=== PATIENT | male | born 1980 | race African-American/Black ===

== ENCOUNTER 2017-02-08 21:20 | Inpatient (IN) | payer OTHER ==
[~2017-02-08] VITALS: Ht 188 cm; Wt 101.2 kg
[2017-02-09] MEDS ORDERED: SODIUM CHLORIDE 0.9% 1,000 ML IV ONE (02:59)
[2017-02-09] MEDS ORDERED: FAMOTIDINE 20MG/2ML VIAL IV STA (02:59)
[2017-02-09] MEDS ORDERED: ONDANSETRON HCL 4MG/2ML VIAL IV STA (02:59)
[2017-02-09 03:14] LABS: INR 1.1; PARTIAL THROMBOPLASTIN TIME 28.9 sec (24.0-34.0); PROTHROMBIN TIME 11.8 sec
[2017-02-09 03:19] LABS: CARBON DIOXIDE 29 mEq/L (21-32); CHLORIDE 106 mEq/L (98-107)
[2017-02-09 03:24] LABS: BASOPHILS % 0.7 % (0.0-2.0); EOSINOPHILS % 1.3 % (0.0-5.0); HEMATOCRIT. 42.7 % (42.0-52.0); HEMOGLOBIN. 14.3 g/dL (14.0-18.0); LYMPHOCYTES % 23.4 % (20.0-50.0); MEAN CORPUSCULAR HEMOGLOBIN 30.4 pg (28.0-32.0); MEAN CORPUSCULAR VOLUME 90.6 fL (80.0-94.0); MEAN PLATELET VOLUME 8.9 fl (7.4-10.4); MONOCYTES % 10.9 % (2.0-8.0); NEUTROPHILS % 63.7 % (40.0-76.0); PLATELET 279 x1000/uL (130-400); RED BLOOD CELL COUNT 4.71 mill/uL (4.7-6.1)
[2017-02-09] MEDS ORDERED: DIPHENHYDRAMINE 50MG/ML VIAL IV PRN (07:15)
[2017-02-09] MEDS ORDERED: NA PHOS,M-B/NA PHOS,DI-BA ENEMA 118ML PR PRN (07:15)
[2017-02-09] MEDS ORDERED: MAGNESIUM/ALUMINUM HYDROXIDE/SIMETHICONE 30ML UDC PO PRN (07:15)
[2017-02-09] MEDS ORDERED: ONDANSETRON HCL 4MG/2ML VIAL IV PRN (07:15)
[2017-02-09] MEDS ORDERED: HYDROCODONE/ACETAMINOPHEN 5/325MG TABLET PO PRN (07:15)
[2017-02-09] MEDS ORDERED: HYDROMORPHONE HCL/PF 2MG/ML CPJ IV PRN (07:15)
[2017-02-09] MEDS ORDERED: IPRATROPIUM/ALBUTEROL 0.5-3(2.5)MG/3ML NEB INH PRN (07:15)
[2017-02-09] MEDS ORDERED: GUAIFENESIN 200MG/10ML SUGAR FREE UDC PO PRN (07:15)
[2017-02-09] MEDS ORDERED: LORAZEPAM 2MG/ML CPJ IV PRN (07:15)
[2017-02-09] MEDS ORDERED: ACETAMINOPHEN 325MG TABLET PO PRN (07:15)
[2017-02-09] MEDS ORDERED: DOCUSATE SODIUM 100MG CAPSULE PO PRN (07:15)
[2017-02-09] MEDS ORDERED: CLONIDINE 0.1MG TABLET PO PRN (07:15)
[2017-02-09 07:45] LABS: CHLORIDE 109 mEq/L (98-107)
[2017-02-09 07:53] LABS: CARBON DIOXIDE 26 mEq/L (21-32)
[2017-02-09 14:00] VITALS: BP 119/86
[2017-02-09 14:50] VITALS: BP 119/86
[2017-02-09] MEDS: SODIUM CHLORIDE 0.45% 1,000 ML IV SCH (15:36)
[2017-02-09] MEDS: PANTOPRAZOLE SODIUM 40 MG/VIAL IV SCH (16:55)
[2017-02-09 16:56] LABS: HEMATOCRIT 41.5 % (42.0-52.0)
[2017-02-09 20:00] VITALS: BP 127/76
[2017-02-09] MEDS ORDERED: OMEPRAZOLE 20MG CAPSULE EXTENDED RELEASE PO SCH (21:00)
[2017-02-10] VITALS: BP 112/60
[2017-02-10 00:24] LABS: HEMATOCRIT 40.6 % (42.0-52.0); HEMOGLOBIN 13.6 g/dL (14.0-18.0)
[2017-02-10] MEDS: SODIUM CHLORIDE 0.45% 1,000 ML IV SCH (02:33)
[2017-02-10 04:00] VITALS: BP 119/76
[2017-02-10 05:26] LABS: BASOPHILS % 0.9 % (0.0-2.0); EOSINOPHILS % 5.9 % (0.0-5.0); HEMATOCRIT. 41.7 % (42.0-52.0); LYMPHOCYTES % 45.6 % (20.0-50.0); MEAN CORPUSCULAR HEMOGLOBIN 30.6 pg (28.0-32.0); MEAN CORPUSCULAR VOLUME 90.9 fL (80.0-94.0); MEAN PLATELET VOLUME 8.4 fl (7.4-10.4); MONOCYTES % 14.6 % (2.0-8.0); PLATELET 242 x1000/uL (130-400); RED BLOOD CELL COUNT 4.58 mill/uL (4.7-6.1); RED CELL DISTRIBUTION WIDTH 13.6 % (11.6-14.6)
[2017-02-10 05:58] LABS: CARBON DIOXIDE 28 mEq/L (21-32); CHLORIDE 106 mEq/L (98-107); HDL CHOLESTEROL 41 mg/dL (40-59); LDL CHOLESTEROL 83 mg/dL (5-100)
[2017-02-10 09:05] VITALS: BP 119/86
[2017-02-10] MEDS: PANTOPRAZOLE SODIUM 40 MG/VIAL IV SCH (09:08)
[2017-02-10] MEDS ORDERED: SODIUM CHLORIDE 0.9% 10ML VIAL ONE (14:25)
[2017-02-10] MEDS ORDERED: SIMETHICONE 40 MG/0.6 ML 30ML ONE (15:31)
[2017-02-10] MEDS ORDERED: FENTANYL CITRATE/PF 50MCG/ML 2ML VIAL ONE (15:32)
[2017-02-10] MEDS ORDERED: MIDAZOLAM HCL 5 MG/5 ML VIAL ONE (15:32)
[2017-02-10] MEDS ORDERED: FENTANYL CITRATE/PF 50MCG/ML 2ML VIAL IV PRN (15:54)
[2017-02-10] MEDS ORDERED: MIDAZOLAM HCL 5 MG/5 ML VIAL IV PRN (15:54)
[2017-02-10 16:56] VITALS: BP 97/64
== END 2017-02-10 17:45 | disposition home or self-care (01) | DRG 241 ==
LOC: ER 23:40 → 7WST 02-09 05:27 → EDBEDREQTM 02-09 05:35 → EDBEDREQ 02-09 05:35 → ENRESERV 02-09 11:14
PROVIDERS: ADMIT Internal Medicine; ATTEND Internal Medicine
PROC: 0DB68ZX Excision of Stomach, Via Natural or Artificial Opening Endoscopic, Diagnostic (ICD-10-PCS; principal; 2017-02-10 15:00)
DX: K29.70 Gastritis, unspecified, without bleeding (principal); E87.8 Other disorders of electrolyte and fluid balance, not elsewhere classified; I10 Essential (primary) hypertension; K92.1 Melena; E86.0 Dehydration; K21.9 Gastro-esophageal reflux disease without esophagitis; F12.90 Cannabis use, unspecified, uncomplicated; F17.210 Nicotine dependence, cigarettes, uncomplicated; K52.9 Noninfective gastroenteritis and colitis, unspecified; F14.90 Cocaine use, unspecified, uncomplicated; F15.90 Other stimulant use, unspecified, uncomplicated
CPT/HCPCS: 36415; 76700; 80048; 80053; 80061; 83690; 84484; 85014; 85018; 85025; 85610; 85730; 86677; 86850; 86900; 88305; 88312; 88313; 96374; 96375; 99285; A4216; C9113; J2250; J2405; J3010; J3490; J7030

== ENCOUNTER 2017-10-05 23:45 | Emergency (ER) | payer MEDICAID ==
[~2017-10-05] VITALS: Ht 188 cm; Wt 102.0 kg
[2017-10-06] MEDS ORDERED: DIPHENHYDRAMINE 50MG/ML VIAL IV SCH (02:15)
[2017-10-06] MEDS ORDERED: KETOROLAC 30MG/ML VIAL IV SCH (02:15)
[2017-10-06] MEDS ORDERED: PROCHLORPERAZINE 10MG/2ML VIAL IV SCH (02:15)
[2017-10-06] MEDS ORDERED: SODIUM CHLORIDE 0.9% 1,000 ML IV ONE (02:15)
[2017-10-06 03:21] LABS: CARBON DIOXIDE 30 mEq/L (21-32); CHLORIDE 104 mEq/L (98-107)
[2017-10-06] MEDS ORDERED: PANTOPRAZOLE SODIUM 40 MG/VIAL IV ONE (03:30)
[2017-10-06 03:31] LABS: HEMATOCRIT 44.3 % (42.0-52.0); HEMOGLOBIN 15.1 g/dL (14.0-18.0); MEAN CORPUSCULAR HEMOGLOBIN 31.3 pg (28.0-32.0); MEAN CORPUSCULAR VOLUME 91.9 fL (80.0-94.0); PLATELET 278 x1000/uL (130-400); RED BLOOD CELL COUNT 4.82 mill/uL (4.7-6.1); RED CELL DISTRIBUTION WIDTH 13.9 % (11.6-14.6)
[2017-10-06 05:15] VITALS: BP 138/80
== END 2017-10-06 05:15 | disposition home or self-care (01) ==
LOC: ER 23:45
DX: K62.5 Hemorrhage of anus and rectum (principal); R10.9 Unspecified abdominal pain; F17.200 Nicotine dependence, unspecified, uncomplicated; F12.10 Cannabis abuse, uncomplicated; F15.10 Other stimulant abuse, uncomplicated
CPT/HCPCS: 36415; 80048; 85027; 86850; 86870; 86900; 86901; 96361; 96374; 99284; C9113; J0780; J1200; J1885

== ENCOUNTER 2017-10-27 02:09 | Emergency (ER) | payer MEDICAID ==
[~2017-10-27] VITALS: Ht 190.5 cm; Wt 104.0 kg
[2017-10-27 04:00] VITALS: BP 125/67
== END 2017-10-27 04:16 | disposition left against medical advice (07) ==
LOC: ER 02:30
DX: N50.819 Testicular pain, unspecified (principal); K92.1 Melena; K59.00 Constipation, unspecified; F17.200 Nicotine dependence, unspecified, uncomplicated; I10 Essential (primary) hypertension
CPT/HCPCS: 99281

== ENCOUNTER 2017-11-02 00:38 | Emergency (ER) | payer MEDICAID ==
[~2017-11-02] VITALS: Ht 188 cm; Wt 105.0 kg
[2017-11-02 00:48] VITALS: BP 139/99
== END 2017-11-02 03:00 | disposition left against medical advice (07) ==
LOC: ER 00:38
DX: Z53.21 Procedure and treatment not carried out due to patient leaving prior to being seen by health care provider (principal)

== ENCOUNTER 2022-04-06 17:14 | Emergency (ER) | payer MEDICAID ==
[~2022-04-06] VITALS: Ht 190.5 cm; Wt 105.8 kg
[2022-04-06] MEDS ORDERED: MAGNESIUM/ALUMINUM HYDROXIDE/SIMETHICONE 30ML UDC PO STA (19:36)
[2022-04-06] MEDS ORDERED: VISCOUS LIDOCAINE 2% 15 ML UDC PO STA (19:36)
[2022-04-06] MEDS ORDERED: FAMOTIDINE 20MG TABLET PO ONE (19:45)
[2022-04-06] MEDS ORDERED: VISCOUS LIDOCAINE 2% 15 ML UDC PO NR (22:15)
[2022-04-06] MEDS ORDERED: FAMOTIDINE 20MG TABLET PO NR (22:15)
[2022-04-06] MEDS ORDERED: MAGNESIUM/ALUMINUM HYDROXIDE/SIMETHICONE 30ML UDC PO NR (22:15)
[2022-04-06] MEDS ORDERED: ONDANSETRON HCL 4MG TABLET PO ONE (22:45)
[2022-04-06 23:05] LABS: BASOPHILS % 0.6 % (0.0-2.0); EOSINOPHILS % 2.3 % (0.0-5.0); HEMATOCRIT. 44.1 % (42.0-52.0); HEMOGLOBIN. 14.8 g/dL (14.0-18.0); LYMPHOCYTES % 34.6 % (20.0-50.0); MEAN CORPUSCULAR HEMOGLOBIN 30.6 pg (28.0-32.0); MEAN CORPUSCULAR VOLUME 91.1 fL (80.0-94.0); MONOCYTES % 10.9 % (2.0-8.0); NEUTROPHILS % 51.6 % (40.0-76.0); PLATELET 302 x1000/uL (130-400); RED BLOOD CELL COUNT 4.84 mill/uL (4.7-6.1); RED CELL DISTRIBUTION WIDTH 14.1 % (11.6-14.6)
[2022-04-06 23:08] LABS: CHLORIDE 108 mEq/L (98-107)
[2022-04-06] MEDS ORDERED: MAG355OR21 MT (23:39)
[2022-04-06] MEDS ORDERED: FAMO20TA8 MT (23:39)
[2022-04-07] VITALS: BP 134/97
== END 2022-04-07 00:06 | disposition home or self-care (01) ==
LOC: ER 17:14
DX: R10.84 Generalized abdominal pain (principal); Z87.19 Personal history of other diseases of the digestive system
CPT/HCPCS: 36415; 80053; 83690; 85025; 93005; 99284; Q0162

== ENCOUNTER 2022-11-26 09:37 | Emergency (ER) | payer MEDICAID ==
[~2022-11-26] VITALS: Ht 188 cm; Wt 92.8 kg
[~2022-11-26 09:37] MED LIST: FAMO20TA8 MT; MAG355OR21 MT
[2022-11-26 13:32] LABS: HEMATOCRIT. 41.1 % (42.0-52.0); HEMOGLOBIN. 13.7 g/dL (14.0-18.0); MEAN CORPUSCULAR VOLUME 92.9 fL (80.0-94.0); MEAN PLATELET VOLUME 7.6 fl (7.4-10.4); PLATELET 288 x1000/uL (130-400); RED BLOOD CELL COUNT 4.43 mill/uL (4.7-6.1); RED CELL DISTRIBUTION WIDTH 13.8 % (11.6-14.6)
[2022-11-26 13:41] LABS: CHLORIDE 107 mEq/L (98-107)
[2022-11-26 13:54] LABS: PLATELET ESTIMATE NORMAL
[2022-11-26] MEDS ORDERED: DOCU100T MT (15:01)
[2022-11-26] MEDS ORDERED: PRAM56OI TP (15:01)
[2022-11-26 15:17] VITALS: BP 127/76
== END 2022-11-26 15:18 | disposition home or self-care (01) ==
LOC: ER 09:59
DX: K64.4 Residual hemorrhoidal skin tags (principal); K40.90 Unilateral inguinal hernia, without obstruction or gangrene, not specified as recurrent
CPT/HCPCS: 36415; 80053; 85025; 99283

== ENCOUNTER 2022-11-28 11:53 | Emergency (ER) | payer MEDICAID ==
[~2022-11-28] VITALS: Ht 188 cm; Wt 91.0 kg
[~2022-11-28 11:53] MED LIST changes: +DOCU100T MT; +PRAM56OI TP
[2022-11-28 11:59] VITALS: BP 122/68
[2022-11-28] MEDS ORDERED: IBUPROFEN 400MG TABLET PO ONE (13:00)
[2022-11-28] MEDS ORDERED: IBUP-2028 MT (13:25)
== END 2022-11-28 13:36 | disposition home or self-care (01) ==
LOC: ER 12:24
DX: K40.90 Unilateral inguinal hernia, without obstruction or gangrene, not specified as recurrent (principal)
CPT/HCPCS: 99282

== ENCOUNTER 2023-11-10 10:32 | Emergency (ER) | payer MEDICAID ==
[~2023-11-10] VITALS: Ht 188 cm; Wt 100.0 kg
[~2023-11-10 10:32] MED LIST changes: +IBUP-2028 MT
[2023-11-10 10:45] VITALS: BP 121/54; PULSE 80; RESP 16; TEMP 98.4; O2SAT 98
[2023-11-10] MEDS ORDERED: HYDR453.3 TP (12:47)
== END 2023-11-10 15:22 | disposition home or self-care (01) ==
LOC: ER 10:32
DX: K40.90 Unilateral inguinal hernia, without obstruction or gangrene, not specified as recurrent (principal); K64.4 Residual hemorrhoidal skin tags; Z98.890 Other specified postprocedural states
CPT/HCPCS: 99282